=== PATIENT | female | born 1940 | race Caucasian/White ===

== ENCOUNTER 2019-10-02 11:58 | Outpatient (CLI) | payer MEDICARE ==
--- NOTE | 2019-10-30 13:03 | MMO ---
Bilateral MAMMO Bilat Screen [facility]. CLINICAL HISTORY: Patient is 79 years old and is seen for screening. The patient has no family history of breast cancer. The patient has no personal history of cancer. VIEWS: The views performed were: bilateral craniocaudal with tomosynthesis and bilateral mediolateral oblique with tomosynthesis. FILMS COMPARED: The present examination has been compared to prior imaging studies performed at [facility] on 10/10/2014, 10/29/2014 and 01/28/2016. This study has been interpreted with the assistance of computer-aided detection. MAMMOGRAM FINDINGS: There are scattered fibroglandular densities. There are no suspicious masses, suspicious calcifications, or new areas of architectural distortion. IMPRESSION: THERE IS NO MAMMOGRAPHIC EVIDENCE OF MALIGNANCY. A ROUTINE FOLLOW-UP MAMMOGRAM IN 1 YEAR IS RECOMMENDED. THE RESULTS OF THIS EXAM WERE SENT TO THE PATIENT. ACR BI-RADS Category 1 - Negative MAMMOGRAPHY NOTE: 1. A negative mammogram report should not delay a biopsy if a dominant of clinically suspicious mass is present. 2. Approximately 10% to 15% of breast cancers are not detected by mammography. 3. Adenosis and dense breasts may obscure an underlying neoplasm. Reported by: ALICIA JUSTICE MD Electonically Signed: [id number]
== END 2019-10-02 11:59 | disposition home or self-care (01) ==
LOC: BICMAMMO 11:58
PROVIDERS: ATTEND Family Medicine
DX: Z12.31 Encounter for screening mammogram for malignant neoplasm of breast (principal)
CPT/HCPCS: 77063; 77067

== ENCOUNTER 2020-08-07 08:57 | Day surgery (SDC) | payer MEDICARE ==
[2020-08-06 12:05] VITALS: BMI 35.2
[2020-08-07 09:19] LABS: INR-International Normal Ratio 0.9; PTT 30.2 sec (22.9-36.1); Prothrombin Time 12.7 sec (12.0-14.7)
[2020-08-07 10:23] VITALS: BP 158/61; TEMP 97.5
== END 2020-08-07 13:00 | disposition home or self-care (01) ==
LOC: CT 08:57
PROVIDERS: ATTEND Internal Medicine Medical Oncology
PROC: 07DR3ZX Extraction of Iliac Bone Marrow, Percutaneous Approach, Diagnostic (ICD-10-PCS; principal; 2020-08-07)
DX: D50.8 Other iron deficiency anemias (principal); D69.59 Other secondary thrombocytopenia; E03.9 Hypothyroidism, unspecified; E78.5 Hyperlipidemia, unspecified; I10 Essential (primary) hypertension; Z79.82 Long term (current) use of aspirin; Z79.899 Other long term (current) drug therapy; Z88.0 Allergy status to penicillin; Z88.1 Allergy status to other antibiotic agents; Z91.011 Allergy to milk products; Z91.012 Allergy to eggs
CPT/HCPCS: 20225; 77012; 85097; 85610; 85730; 88184; 88237; 88264; 88280; 88305; 88311; 88313; 88341; 88342; 88365

== ENCOUNTER 2021-05-27 13:18 | Emergency (ER) | payer MEDICARE ==
[2021-05-27] MEDS ORDERED: Meclizine HCl 25 MG TAB ONE (14:30)
[2021-05-27 15:01] LABS: Hemoglobin 11.4 g/dL (12.0-16.0); Mean Corpuscular HGB CONC 35.3 g/dL (32.0-36.0); Mean Corpuscular Hemoglobin 33.3 pg (27.0-31.0); Mean Corpuscular Volume 94.4 fL (78.0-98.0); White Blood Cell (WBC) Count 10.3 thou/uL (4.8-10.8)
[2021-05-27 15:03] LABS: Bacteria/HPF None Seen HPF (None Seen); Bilirubin Negative (Negative); Blood, Urine Trace (Negative); Clarity Turbid (Clear); Glucose, Urine (Dipstick) Normal (Negative); Ketone, Urine 20 mg/dL (Negative); Leukocyte Negative Leu/uL (Negative); Nitrite Negative (Negative); Protein, Urine (Dipstick) 50 mg/dL (Neg-Trace); RBC/HPF 0-3 HPF (0-3); Specific Gravity, Urine 1.022 (1.002-1.036); Squamous Epithelial 0-3 HPF (0-3); WBC/HPF 0-3 HPF (0-3)
[2021-05-27 15:21] LABS: Band 3 % (5-11); Lymphocytes 5 % (21-51); MDiff Complete? YES; Mean Platelet Volume 9.1 fL (7.4-10.4); Monocytes 14 % (0-10); Neutrophil 75 % (42-75); Ovalocytes SLIGHT = 2-5 cells (100X) (0-1/hpf); Platelet Count 75 thou/uL (130-400); Platelet Morphology Comment Appears Decreased; Polychromasia SLIGHT = 2-3 cells (100X) (0-2/hpf); Reactive Lymphocytes 2 % (0-10); Tear Drops SLIGHT = 2-5 cells (100X) (0-1/hpf)
[2021-05-27 15:31] LABS: ALT (SGPT) 18 U/L (8-55); AST (SGOT) 20 U/L (5-34); Albumin 4.2 g/dL (3.4-4.8); Alkaline Phosphatase 79 U/L (40-110); Anion Gap 13 mmol/L (10-20); BUN (Urea Nitrogen) 12 mg/dL (9.8-20.1); Bilirubin, Total 1.5 mg/dL (0.2-1.2); Calc. Creatinine Clearance 0 mL/min (70-130); Calcium 9.4 mg/dL (7.8-10.44); Carbon Dioxide 27 mmol/L (23-31); Chloride 99 mmol/L (98-107); Globulin 3.1 g/dL (2.4-3.5); Glucose 120 mg/dL (83-110); Lipase 10 U/L (8-78); Potassium 4.2 mmol/L (3.5-5.1); Protein, Total 7.3 g/dL (5.8-8.1); Sodium 135 mmol/L (136-145)
== END 2021-05-27 17:34 | disposition home or self-care (01) ==
LOC: ERS 13:18
DX: H81.13 Benign paroxysmal vertigo, bilateral (principal); K52.9 Noninfective gastroenteritis and colitis, unspecified; N83.202 Unspecified ovarian cyst, left side; E03.9 Hypothyroidism, unspecified; E78.5 Hyperlipidemia, unspecified; I10 Essential (primary) hypertension; Z79.899 Other long term (current) drug therapy; Z79.82 Long term (current) use of aspirin
CPT/HCPCS: 74177; 80053; 81003; 81015; 83690; 84484; 85025; 87086; 93005

== ENCOUNTER 2021-06-17 16:18 | Observation (INO) | payer MEDICARE ==
[2021-06-17] MEDS ORDERED: Ondansetron ODT 4 MG TAB PO PRN (20:46)
[2021-06-17] MEDS ORDERED: Simvastatin 40 MG TAB PO ONE (21:16)
[2021-06-17] MEDS ORDERED: Atorvastatin Calcium 20 MG TAB PO SCH (22:00)
[2021-06-17 22:08] LABS: ALT (SGPT) 7 U/L (8-55); AST (SGOT) 11 U/L (5-34); Albumin 3.6 g/dL (3.4-4.8); Alkaline Phosphatase 63 U/L (40-110); Anion Gap 13 mmol/L (10-20); BUN (Urea Nitrogen) 9 mg/dL (9.8-20.1); Calc. Creatinine Clearance 81 mL/min (70-130); Calcium 8.8 mg/dL (7.8-10.44); Carbon Dioxide 28 mmol/L (23-31); Chloride 101 mmol/L (98-107); Glucose 96 mg/dL (83-110); Potassium 3.2 mmol/L (3.5-5.1); Protein, Total 6.6 g/dL (5.8-8.1); Sodium 139 mmol/L (136-145)
[2021-06-17 22:25] LABS: Band 6 % (5-11); Hemoglobin 8.8 g/dL (12.0-16.0); Hypochromia SLIGHT = 6-15 cells (100X) (0-5/hpf); Lymphocytes 27 % (21-51); MDiff Complete? YES; Mean Corpuscular HGB CONC 36.3 g/dL (32.0-36.0); Mean Corpuscular Hemoglobin 34.7 pg (27.0-31.0); Mean Corpuscular Volume 95.7 fL (78.0-98.0); Mean Platelet Volume 8.8 fL (7.4-10.4); Monocytes 15 % (0-10); Neutrophil 52 % (42-75); Platelet Count 90 thou/uL (130-400); Platelet Morphology Comment Appears Decreased; RBC Distribution Width 13.8 % (11.5-14.5); Red Blood Cell (RBC) Count 2.52 mill/uL (4.20-5.40); White Blood Cell (WBC) Count 5.4 thou/uL (4.8-10.8)
[2021-06-17 22:49] LABS: Bacteria/HPF None Seen HPF (None Seen); Bilirubin Negative (Negative); Blood, Urine Negative (Negative); Clarity Clear (Clear); Glucose, Urine (Dipstick) Normal (Negative); Ketone, Urine 40 mg/dL (Negative); Leukocyte Negative Leu/uL (Negative); Nitrite Negative (Negative); Protein, Urine (Dipstick) Negative (Neg-Trace); RBC/HPF 0-3 HPF (0-3); Specific Gravity, Urine 1.009 (1.002-1.036); Squamous Epithelial None Seen HPF (0-3); Urobilinogen Normal mg/dL (Less than 2); WBC/HPF 0-3 HPF (0-3)
[2021-06-17] MEDS ORDERED: Potassium Chloride 20 MEQ TAB PO SCH (23:30)
[2021-06-18] MEDS: Levothyroxine Sodium 125 MCG TAB PO SCH (05:08)
[2021-06-18 06:16] LABS: ALT (SGPT) Less than 7 U/L (8-55); AST (SGOT) 11 U/L (5-34); Albumin 3.5 g/dL (3.4-4.8); Alkaline Phosphatase 61 U/L (40-110); Anion Gap 12 mmol/L (10-20); BUN (Urea Nitrogen) 9 mg/dL (9.8-20.1); Bilirubin, Total 0.9 mg/dL (0.2-1.2); Calc. Creatinine Clearance 85 mL/min (70-130); Calcium 8.7 mg/dL (7.8-10.44); Carbon Dioxide 28 mmol/L (23-31); Chloride 103 mmol/L (98-107); Globulin 2.9 g/dL (2.4-3.5); Glucose 97 mg/dL (83-110); Iron 54 ug/dL (50-170); Iron Binding Capacity, Total 210 mcg/dL (265-497); Potassium 3.9 mmol/L (3.5-5.1); Protein, Total 6.4 g/dL (5.8-8.1); Sodium 139 mmol/L (136-145)
[2021-06-18 06:18] LABS: Iron 53 ug/dL (50-170); Iron Binding Capacity, Total 205 mcg/dL (265-497)
[2021-06-18 06:26] LABS: Band 3 % (5-11); Eosinophils 1 % (0-10); Hemoglobin 8.7 g/dL (12.0-16.0); Hypochromia SLIGHT = 6-15 cells (100X) (0-5/hpf); Lymphocytes 24 % (21-51); MDiff Complete? YES; Mean Corpuscular HGB CONC 36.1 g/dL (32.0-36.0); Mean Corpuscular Hemoglobin 34.3 pg (27.0-31.0); Mean Corpuscular Volume 94.9 fL (78.0-98.0); Mean Platelet Volume 8.9 fL (7.4-10.4); Monocytes 4 % (0-10); Neutrophil 68 % (42-75); Nucleated RBC 1 % (0); Platelet Count 87 thou/uL (130-400); Platelet Morphology Comment Appears Decreased; RBC Distribution Width 13.8 % (11.5-14.5); Red Blood Cell (RBC) Count 2.55 mill/uL (4.20-5.40); White Blood Cell (WBC) Count 4.9 thou/uL (4.8-10.8)
[2021-06-18 06:40] LABS: Ferritin 222.31 ng/mL (10-291)
[2021-06-18 07:11] LABS: Vitamin B12 Greater than 2000 pg/mL (211-911)
[2021-06-18] MEDS: Enoxaparin Sodium 40 MG/0.4 ML SYRINGE SC SCH (08:53)
[2021-06-18] MEDS: Cyanocobalamin (Vitamin B-12) 1,000 MCG TAB PO SCH (08:53)
[2021-06-18] MEDS: Cholecalciferol 1,000 UNITS (25 MCG) TAB PO SCH (08:54)
[2021-06-18] MEDS: Losartan 25 MG TAB PO SCH (08:54)
[2021-06-18] MEDS: Nebivolol HCl 2.5 MG TAB PO SCH (08:54)
[2021-06-18] MEDS: Multivitamin W/ Minerals 1 TAB PO SCH (08:54)
[2021-06-18] MEDS: Aspirin Chewable 81 MG TAB PO SCH (08:54)
[2021-06-18 13:38] VITALS: BMI 30.9
[2021-06-18] MEDS ORDERED: Atorvastatin Calcium 20 MG TAB PO SCH (21:00)
[2021-06-19] MEDS: Levothyroxine Sodium 125 MCG TAB PO SCH (05:18)
[2021-06-19 07:01] LABS: Hemoglobin 9.1 g/dL (12.0-16.0); Mean Corpuscular HGB CONC 34.9 g/dL (32.0-36.0); Mean Corpuscular Hemoglobin 33.7 pg (27.0-31.0); Mean Corpuscular Volume 96.6 fL (78.0-98.0); Mean Platelet Volume 9.2 fL (7.4-10.4); Platelet Count 88 thou/uL (130-400); RBC Distribution Width 13.6 % (11.5-14.5); Red Blood Cell (RBC) Count 2.69 mill/uL (4.20-5.40); White Blood Cell (WBC) Count 6.3 thou/uL (4.8-10.8)
[2021-06-19 07:20] LABS: ALT (SGPT) 9 U/L (8-55); AST (SGOT) 20 U/L (5-34); Albumin 3.5 g/dL (3.4-4.8); Alkaline Phosphatase 62 U/L (40-110); Anion Gap 11 mmol/L (10-20); BUN (Urea Nitrogen) 6 mg/dL (9.8-20.1); Calc. Creatinine Clearance 78 mL/min (70-130); Calcium 9.1 mg/dL (7.8-10.44); Carbon Dioxide 27 mmol/L (23-31); Chloride 101 mmol/L (98-107); Globulin 3.3 g/dL (2.4-3.5); Glucose 98 mg/dL (83-110); Potassium 4.1 mmol/L (3.5-5.1); Protein, Total 6.8 g/dL (5.8-8.1); Sodium 135 mmol/L (136-145)
[2021-06-19 07:32] LABS: Band 2 % (5-11); Eosinophils 2 % (0-10); Lymphocytes 18 % (21-51); MDiff Complete? YES; Monocytes 23 % (0-10); Neutrophil 55 % (42-75); Ovalocytes SLIGHT = 2-5 cells (100X) (0-1/hpf); Platelet Morphology Comment Appears Decreased; Polychromasia SLIGHT = 2-3 cells (100X) (0-2/hpf)
[2021-06-19 07:38] VITALS: BP 145/55; TEMP 100.2
[2021-06-19] MEDS: Aspirin Chewable 81 MG TAB PO SCH (08:56)
[2021-06-19] MEDS: Enoxaparin Sodium 40 MG/0.4 ML SYRINGE SC SCH (08:56)
[2021-06-19] MEDS: Nebivolol HCl 2.5 MG TAB PO SCH (08:57)
[2021-06-19] MEDS: Multivitamin W/ Minerals 1 TAB PO SCH (08:57)
[2021-06-19] MEDS: Cyanocobalamin (Vitamin B-12) 1,000 MCG TAB PO SCH (08:57)
[2021-06-19] MEDS: Losartan 25 MG TAB PO SCH (08:58)
[2021-06-19] MEDS: Cholecalciferol 1,000 UNITS (25 MCG) TAB PO SCH (08:58)
[2021-06-19] MEDS ORDERED: Acetaminophen 325 MG TAB PO PRN (09:08)
[2021-06-19] MEDS ORDERED: Acetaminophen 325 MG TAB PO SCH (09:15)
== END 2021-06-19 19:23 | disposition home or self-care (01) ==
LOC: T4-B 17:08
PROVIDERS: ADMIT Family Medicine; ATTEND Family Medicine
DX: N81.10 Cystocele, unspecified (principal); R33.0 Drug induced retention of urine; T45.0X5A Adverse effect of antiallergic and antiemetic drugs, initial encounter; D25.9 Leiomyoma of uterus, unspecified; K58.0 Irritable bowel syndrome with diarrhea; R41.81 Age-related cognitive decline; I10 Essential (primary) hypertension; E78.5 Hyperlipidemia, unspecified; E03.9 Hypothyroidism, unspecified; D53.9 Nutritional anemia, unspecified; Z79.82 Long term (current) use of aspirin; Z79.899 Other long term (current) drug therapy; Z88.0 Allergy status to penicillin; Z91.011 Allergy to milk products; Z91.012 Allergy to eggs
CPT/HCPCS: 36415; 51702; 76770; 80053; 81001; 82378; 82607; 82728; 82746; 83540; 83550; 84443; 85025; 85060; 86304; 87086; 96372; G0378; J1650

== ENCOUNTER 2024-05-24 13:48 | Emergency (ER) | payer MEDICARE ==
[2024-05-24] MEDS ORDERED: HYDROcodone/Acetaminophen 5/325 mg Tablet ONE (18:42)
[2024-05-24] MEDS ORDERED: Ketorolac Tromethamine 30 MG (1 mL) VIAL ONE (20:50)
== END 2024-05-24 21:55 | disposition home or self-care (01) ==
LOC: ERS 13:48
DX: M25.552 Pain in left hip (principal); E03.9 Hypothyroidism, unspecified; I10 Essential (primary) hypertension; E78.00 Pure hypercholesterolemia, unspecified; Z79.890 Hormone replacement therapy; Z79.899 Other long term (current) drug therapy
CPT/HCPCS: 72170; 72192; 73502; J1885; 96372

== ENCOUNTER 2024-06-01 13:07 | Inpatient (IN) | payer MEDICARE ==
[2024-06-01 13:51] VITALS: BMI 30.2
[2024-06-01] MEDS ORDERED: Ondansetron ODT 4 MG TAB PO PRN (14:43)
[2024-06-01] MEDS: traMADol HCl 50 MG TAB PO PRN (16:57)
[2024-06-01] MEDS: Atorvastatin Calcium 20 MG TAB PO SCH (20:24)
[2024-06-01] MEDS: Famotidine 20 MG TAB PO SCH (20:24)
[2024-06-01] MEDS: Transdermal Patch Removal TOP SCH (22:58)
[2024-06-02 02:16] LABS: Hematocrit 29.2 % (36.0-47.0); Hemoglobin 10.2 g/dL (12.0-16.0); Mean Corpuscular HGB CONC 34.9 g/dL (32.0-36.0); Mean Corpuscular Hemoglobin 30.9 pg (27.0-31.0); Mean Corpuscular Volume 88.5 fL (78.0-98.0); Mean Platelet Volume 11.7 fL (7.4-10.4); Platelet Count 149 10x3/uL (130-400)
[2024-06-02 02:17] LABS: ALT (SGPT) 58 U/L (Less than 34); AST (SGOT) 28 U/L (11-34); Albumin 3.3 g/dL (3.1-4.5); Alkaline Phosphatase 88 U/L (40-110); Anion Gap 15 mmol/L (10-20); BUN (Urea Nitrogen) 14 mg/dL (9.8-20.1); Calc. Creatinine Clearance 89 mL/min (70-130); Calcium 9.2 mg/dL (7.8-10.44); Carbon Dioxide 26 mmol/L (23-31); Chloride 100 mmol/L (98-107); Estimated GFR 92; Globulin 3.4 g/dL (2.4-3.5); Glucose 95 mg/dL (83-110); Potassium 3.4 mmol/L (3.5-5.1); Protein, Total 6.7 g/dL (5.8-8.1); Sodium 138 mmol/L (136-145)
[2024-06-02 02:41] LABS: Band 2 % (5-11); Lymphocytes 8 % (21-51); Monocytes 7 % (0-10); Neutrophil 83 % (42-75); Platelet Adequacy Comment Platelets Normal; Tear Drops SLIGHT = 2-5 cells HPF (0-1)
[2024-06-02] MEDS: Levothyroxine Sodium 125 MCG TAB PO SCH (05:25)
[2024-06-02] MEDS: Lidocaine 4% Patch TD SCH (08:59)
[2024-06-02] MEDS: Multivitamin W/ Minerals 1 TAB PO SCH (09:00)
[2024-06-02] MEDS: Cyanocobalamin (Vitamin B-12) 1,000 MCG TAB PO SCH (09:00)
[2024-06-02] MEDS: Potassium Chloride 20 MEQ TAB PO SCH (09:00)
[2024-06-02] MEDS: Colestipol 1 GM TAB PO SCH (09:00)
[2024-06-02] MEDS: Nebivolol HCl 2.5 MG TAB PO SCH (09:00)
[2024-06-02] MEDS: Cholecalciferol 1,000 UNITS (25 MCG) TAB PO SCH (09:01)
[2024-06-02] MEDS: Losartan 25 MG TAB PO SCH (09:01)
[2024-06-02] MEDS: Enoxaparin 40 MG (0.4 mL) SYRINGE SC SCH (09:01)
[2024-06-02] MEDS: HYDROcodone/Acetaminophen 5/325 mg Tablet PO PRN (12:20)
[2024-06-02] MEDS: Ondansetron PF 4 MG/2 ML Vial IVP SCH (12:21)
[2024-06-02] MEDS: Lactated Ringer's 1,000 ML IV SCH (12:21)
[2024-06-02] MEDS: Cyclobenzaprine 10 MG TAB PO SCH (15:25)
[2024-06-03 07:42] LABS: ALT (SGPT) 37 U/L (Less than 34); AST (SGOT) 22 U/L (11-34); Albumin 3.1 g/dL (3.1-4.5); Alkaline Phosphatase 81 U/L (40-110); Anion Gap 12 mmol/L (10-20); BUN (Urea Nitrogen) 10 mg/dL (9.8-20.1); Bilirubin, Total 0.8 mg/dL (0.3-1.2); Calc. Creatinine Clearance 80 mL/min (70-130); Calcium 9.4 mg/dL (7.8-10.44); Carbon Dioxide 28 mmol/L (23-31); Chloride 102 mmol/L (98-107); Estimated GFR 90; Globulin 3.6 g/dL (2.4-3.5); Glucose 102 mg/dL (83-110); Potassium 4.2 mmol/L (3.5-5.1); Protein, Total 6.7 g/dL (5.8-8.1); Sodium 138 mmol/L (136-145)
[2024-06-03 07:46] LABS: #Basophils Less than 0.03 10x3/uL (0.0-0.2); #Eosinophils Less than 0.03 10x3/uL (0.0-0.7); %Basophils 0.2 % (0.0-1.0); %Lymphocytes 11.2 % (21.0-51.0); %Monocytes 16.2 % (0.0-10.0); %Neutrophils 68.7 % (42.0-75.0); Hematocrit 28.5 % (36.0-47.0); Hemoglobin 9.3 g/dL (12.0-16.0); Mean Corpuscular Hemoglobin 30.7 pg (27.0-31.0); Mean Corpuscular Volume 93.1 fL (78.0-98.0); Mean Platelet Volume 12.1 fL (7.4-10.4); Platelet Count 132 10x3/uL (130-400); RBC Distribution Width 14.3 % (11.5-14.5); Red Blood Cell (RBC) Count 3.06 mill/uL (4.20-5.40)
[2024-06-03] MEDS: Acetaminophen 325 MG TAB PO PRN (09:06)
[2024-06-03 21:33] LABS: Influenza A by NAA Not Detected (NotDetected); Influenza B by NAA Not Detected (NotDetected); SARS-CoV-2 NAA Rapid Test Not Detected (NotDetected)
[2024-06-04 05:04] LABS: Hematocrit 29.2 % (36.0-47.0); Mean Corpuscular HGB CONC 34.2 g/dL (32.0-36.0); Mean Corpuscular Hemoglobin 30.9 pg (27.0-31.0); Mean Corpuscular Volume 90.1 fL (78.0-98.0); Mean Platelet Volume 11.8 fL (7.4-10.4); Platelet Count 132 10x3/uL (130-400); RBC Distribution Width 14.2 % (11.5-14.5); Red Blood Cell (RBC) Count 3.24 mill/uL (4.20-5.40)
[2024-06-04 05:21] LABS: ALT (SGPT) 29 U/L (Less than 34); AST (SGOT) 20 U/L (11-34); Alkaline Phosphatase 76 U/L (40-110); Anion Gap 12 mmol/L (10-20); BUN (Urea Nitrogen) 11 mg/dL (9.8-20.1); Bilirubin, Total 0.9 mg/dL (0.3-1.2); Calc. Creatinine Clearance 84 mL/min (70-130); Calcium 9.5 mg/dL (7.8-10.44); Carbon Dioxide 29 mmol/L (23-31); Chloride 102 mmol/L (98-107); Estimated GFR 91; Globulin 3.8 g/dL (2.4-3.5); Glucose 106 mg/dL (83-110); Potassium 4.1 mmol/L (3.5-5.1); Protein, Total 6.8 g/dL (5.8-8.1); Sodium 139 mmol/L (136-145)
[2024-06-04 05:32] LABS: Lymphocytes 9 % (21-51); Monocytes 10 % (0-10); Neutrophil 81 % (42-75); Platelet Adequacy Comment Platelets Normal; Tear Drops SLIGHT = 2-5 cells HPF (0-1)
[2024-06-04 06:27] LABS: Bacteria/HPF None Seen HPF (None Seen); Bilirubin Negative (Negative); Blood, Urine Negative (Negative); CAUTI Indications for Culture Fever or rigors; Clarity Clear (Clear); Glucose, Urine (Dipstick) Normal (Negative); Ketone, Urine Negative (Negative); Leukocyte Negative Leu/uL (Negative); Nitrite Negative (Negative); Protein, Urine (Dipstick) Negative (Neg-Trace); RBC/HPF None Seen HPF (0-3); Squamous Epithelial None Seen HPF (0-3); Urobilinogen Normal mg/dL (Less than 2); WBC/HPF 0-3 HPF (0-3); pH, Urine 5.5 (5.0-9.0)
[2024-06-04 06:41] LABS: Urine Culture Reflex No No
[2024-06-05 06:15] LABS: #Basophils 0.03 10x3/uL (0.0-0.2); #Eosinophils Less than 0.03 10x3/uL (0.0-0.7); %Basophils 0.3 % (0.0-1.0); %Eosinophils 0.1 % (0.0-10.0); %Lymphocytes 7.9 % (21.0-51.0); %Monocytes 10.7 % (0.0-10.0); %Neutrophils 78.1 % (42.0-75.0); Hematocrit 29.1 % (36.0-47.0); Hemoglobin 9.7 g/dL (12.0-16.0); Mean Corpuscular HGB CONC 33.3 g/dL (32.0-36.0); Mean Corpuscular Hemoglobin 30.6 pg (27.0-31.0); Mean Corpuscular Volume 91.8 fL (78.0-98.0); Mean Platelet Volume 12.4 fL (7.4-10.4); Platelet Count 141 10x3/uL (130-400); RBC Distribution Width 14.1 % (11.5-14.5); Red Blood Cell (RBC) Count 3.17 mill/uL (4.20-5.40)
[2024-06-05 06:31] LABS: ALT (SGPT) 22 U/L (Less than 34); AST (SGOT) 15 U/L (11-34); Albumin 3.1 g/dL (3.1-4.5); Alkaline Phosphatase 79 U/L (40-110); Anion Gap 14 mmol/L (10-20); BUN (Urea Nitrogen) 11 mg/dL (9.8-20.1); Bilirubin, Total 0.8 mg/dL (0.3-1.2); Calc. Creatinine Clearance 82 mL/min (70-130); Calcium 9.4 mg/dL (7.8-10.44); Carbon Dioxide 28 mmol/L (23-31); Chloride 99 mmol/L (98-107); Estimated GFR 90; Globulin 3.9 g/dL (2.4-3.5); Glucose 159 mg/dL (83-110); Potassium 3.9 mmol/L (3.5-5.1); Sodium 137 mmol/L (136-145)
[2024-06-06 05:45] LABS: #Basophils 0.03 10x3/uL (0.0-0.2); #Eosinophils Less than 0.03 10x3/uL (0.0-0.7); %Basophils 0.2 % (0.0-1.0); %Eosinophils 0.1 % (0.0-10.0); %Lymphocytes 8.4 % (21.0-51.0); %Neutrophils 78.3 % (42.0-75.0); Hematocrit 29.4 % (36.0-47.0); Hemoglobin 9.9 g/dL (12.0-16.0); Mean Corpuscular HGB CONC 33.7 g/dL (32.0-36.0); Mean Corpuscular Hemoglobin 30.6 pg (27.0-31.0); Mean Corpuscular Volume 90.7 fL (78.0-98.0); Mean Platelet Volume 12.2 fL (7.4-10.4); Platelet Count 137 10x3/uL (130-400); RBC Distribution Width 14.3 % (11.5-14.5); Red Blood Cell (RBC) Count 3.24 mill/uL (4.20-5.40)
[2024-06-06 06:12] LABS: ALT (SGPT) 19 U/L (Less than 34); AST (SGOT) 16 U/L (11-34); Albumin 3.2 g/dL (3.1-4.5); Alkaline Phosphatase 92 U/L (40-110); Anion Gap 12 mmol/L (10-20); BUN (Urea Nitrogen) 14 mg/dL (9.8-20.1); Calc. Creatinine Clearance 71 mL/min (70-130); Calcium 9.9 mg/dL (7.8-10.44); Carbon Dioxide 30 mmol/L (23-31); Chloride 97 mmol/L (98-107); Estimated GFR 87; Globulin 4.3 g/dL (2.4-3.5); Glucose 102 mg/dL (83-110); Potassium 4.2 mmol/L (3.5-5.1); Protein, Total 7.5 g/dL (5.8-8.1); Sodium 135 mmol/L (136-145)
[2024-06-06 17:31] LABS: Hematocrit 28.8 % (36.0-47.0); Hemoglobin 9.9 g/dL (12.0-16.0); Mean Corpuscular HGB CONC 34.4 g/dL (32.0-36.0); Mean Corpuscular Hemoglobin 30.9 pg (27.0-31.0); Mean Platelet Volume 11.8 fL (7.4-10.4); Platelet Count 137 10x3/uL (130-400); RBC Distribution Width 14.1 % (11.5-14.5)
[2024-06-06 17:55] LABS: Lymphocytes 5 % (21-51); Monocytes 10 % (0-10); Neutrophil 84 % (42-75); Platelet Adequacy Comment Platelets Normal; Polychromasia SLIGHT = 2-3 cells HPF (0-2); RBC Morphology Within Normal Limits; Reactive Lymphocytes 1 % (0-10)
[2024-06-07 05:58] LABS: #Basophils 0.06 10x3/uL (0.0-0.2); #Eosinophils Less than 0.03 10x3/uL (0.0-0.7); %Basophils 0.4 % (0.0-1.0); %Eosinophils 0.1 % (0.0-10.0); %Lymphocytes 6.4 % (21.0-51.0); %Monocytes 11.5 % (0.0-10.0); %Neutrophils 78.3 % (42.0-75.0); Hematocrit 29.1 % (36.0-47.0); Hemoglobin 9.8 g/dL (12.0-16.0); Mean Corpuscular HGB CONC 33.7 g/dL (32.0-36.0); Mean Corpuscular Hemoglobin 30.2 pg (27.0-31.0); Mean Corpuscular Volume 89.5 fL (78.0-98.0); Mean Platelet Volume 12.6 fL (7.4-10.4); Platelet Count 136 10x3/uL (130-400); RBC Distribution Width 14.2 % (11.5-14.5); Red Blood Cell (RBC) Count 3.25 mill/uL (4.20-5.40)
[2024-06-07 06:28] LABS: ALT (SGPT) 16 U/L (Less than 34); AST (SGOT) 20 U/L (11-34); Alkaline Phosphatase 88 U/L (40-110); Anion Gap 12 mmol/L (10-20); BUN (Urea Nitrogen) 11 mg/dL (9.8-20.1); Bilirubin, Total 0.9 mg/dL (0.3-1.2); Calc. Creatinine Clearance 79 mL/min (70-130); Calcium 9.6 mg/dL (7.8-10.44); Carbon Dioxide 29 mmol/L (23-31); Chloride 97 mmol/L (98-107); Estimated GFR 89; Globulin 4.2 g/dL (2.4-3.5); Glucose 101 mg/dL (83-110); Protein, Total 7.2 g/dL (5.8-8.1); Sodium 134 mmol/L (136-145)
[2024-06-07 11:55] VITALS: BMI 30.2
[2024-06-07] MEDS: Sodium Chloride 0.9% 1,000 ML IV SCH (11:59)
[2024-06-08 02:04] LABS: Bacteria/HPF 2+ HPF (None Seen); Bilirubin Negative (Negative); Blood, Urine 2+ (Negative); CAUTI Indications for Culture Alt mental st,lethar; Clarity Turbid (Clear); Glucose, Urine (Dipstick) Normal (Negative); Ketone, Urine Negative (Negative); Leukocyte 500 Leu/uL (Negative); Nitrite 1+ (Negative); Protein, Urine (Dipstick) 70 mg/dL (Neg-Trace); RBC/HPF Greater than 50 HPF (0-3); Specific Gravity, Urine 1.009 (1.002-1.036); Urobilinogen Normal mg/dL (Less than 2); WBC/HPF Greater than 50 HPF (0-3)
[2024-06-08 02:05] LABS: Urine Culture Reflex Yes Yes
[2024-06-08] MEDS: Cyclobenzaprine 10 MG TAB PO PRN (02:08)
[2024-06-08 05:23] LABS: #Basophils 0.04 10x3/uL (0.0-0.2); #Eosinophils Less than 0.03 10x3/uL (0.0-0.7); %Basophils 0.4 % (0.0-1.0); %Eosinophils 0.1 % (0.0-10.0); %Lymphocytes 7.6 % (21.0-51.0); %Monocytes 13.2 % (0.0-10.0); %Neutrophils 74.2 % (42.0-75.0); Hematocrit 25.6 % (36.0-47.0); Hemoglobin 8.8 g/dL (12.0-16.0); Mean Corpuscular HGB CONC 34.4 g/dL (32.0-36.0); Mean Corpuscular Hemoglobin 30.8 pg (27.0-31.0); Mean Corpuscular Volume 89.5 fL (78.0-98.0); Mean Platelet Volume 12.1 fL (7.4-10.4); Platelet Count 129 10x3/uL (130-400); RBC Distribution Width 14.1 % (11.5-14.5); Red Blood Cell (RBC) Count 2.86 mill/uL (4.20-5.40)
[2024-06-08 05:28] LABS: ALT (SGPT) 14 U/L (Less than 34); AST (SGOT) 21 U/L (11-34); Albumin 2.7 g/dL (3.1-4.5); Alkaline Phosphatase 79 U/L (40-110); Anion Gap 12 mmol/L (10-20); BUN (Urea Nitrogen) 8 mg/dL (9.8-20.1); Bilirubin, Total 0.7 mg/dL (0.3-1.2); Calc. Creatinine Clearance 89 mL/min (70-130); Calcium 9.5 mg/dL (7.8-10.44); Carbon Dioxide 28 mmol/L (23-31); Chloride 100 mmol/L (98-107); Estimated GFR 92; Globulin 4.2 g/dL (2.4-3.5); Glucose 110 mg/dL (83-110); Potassium 4.3 mmol/L (3.5-5.1); Protein, Total 6.9 g/dL (5.8-8.1); Sodium 136 mmol/L (136-145)
[2024-06-08] MEDS: Cyclobenzaprine 10 MG TAB PO SCH (09:03)
[2024-06-08] MEDS: Cephalexin 250 MG CAP PO SCH (10:00)
[2024-06-08] MEDS: Sodium Chloride 0.9% 1,000 ML IV SCH (11:09)
[2024-06-09] MEDS: Polyethylene Glycol 3350 17 GM Packet PO SCH (08:57)
[2024-06-09 09:27] LABS: #Basophils Less than 0.03 10x3/uL (0.0-0.2); #Eosinophils Less than 0.03 10x3/uL (0.0-0.7); %Basophils 0.3 % (0.0-1.0); %Eosinophils 0.1 % (0.0-10.0); %Lymphocytes 8.7 % (21.0-51.0); %Neutrophils 72.2 % (42.0-75.0); Hematocrit 25.8 % (36.0-47.0); Hemoglobin 8.8 g/dL (12.0-16.0); Mean Corpuscular HGB CONC 34.1 g/dL (32.0-36.0); Mean Corpuscular Hemoglobin 30.8 pg (27.0-31.0); Mean Corpuscular Volume 90.2 fL (78.0-98.0); Mean Platelet Volume 11.9 fL (7.4-10.4); Platelet Count 128 10x3/uL (130-400); Red Blood Cell (RBC) Count 2.86 mill/uL (4.20-5.40)
[2024-06-09 09:50] LABS: ALT (SGPT) 12 U/L (Less than 34); AST (SGOT) 16 U/L (11-34); Albumin 2.7 g/dL (3.1-4.5); Alkaline Phosphatase 76 U/L (40-110); Anion Gap 10 mmol/L (10-20); BUN (Urea Nitrogen) 7 mg/dL (9.8-20.1); Bilirubin, Total 0.7 mg/dL (0.3-1.2); Calc. Creatinine Clearance 89 mL/min (70-130); Calcium 9.1 mg/dL (7.8-10.44); Carbon Dioxide 27 mmol/L (23-31); Chloride 102 mmol/L (98-107); Estimated GFR 92; Globulin 4.3 g/dL (2.4-3.5); Glucose 124 mg/dL (83-110); Potassium 4.2 mmol/L (3.5-5.1); Sodium 135 mmol/L (136-145)
[2024-06-10 08:02] LABS: Hematocrit 25.1 % (36.0-47.0); Hemoglobin 8.5 g/dL (12.0-16.0); Mean Corpuscular HGB CONC 33.9 g/dL (32.0-36.0); Mean Corpuscular Hemoglobin 30.5 pg (27.0-31.0); Mean Platelet Volume 12.2 fL (7.4-10.4); Platelet Count 143 10x3/uL (130-400); RBC Distribution Width 13.8 % (11.5-14.5); Red Blood Cell (RBC) Count 2.79 mill/uL (4.20-5.40)
[2024-06-10 08:17] LABS: ALT (SGPT) 11 U/L (Less than 34); AST (SGOT) 17 U/L (11-34); Albumin 2.8 g/dL (3.1-4.5); Alkaline Phosphatase 74 U/L (40-110); Anion Gap 15 mmol/L (10-20); BUN (Urea Nitrogen) 7 mg/dL (9.8-20.1); Bilirubin, Total 0.7 mg/dL (0.3-1.2); Calc. Creatinine Clearance 93 mL/min (70-130); Calcium 9.5 mg/dL (7.8-10.44); Carbon Dioxide 26 mmol/L (23-31); Chloride 100 mmol/L (98-107); Estimated GFR 93; Globulin 4.2 g/dL (2.4-3.5); Glucose 103 mg/dL (83-110); Potassium 4.7 mmol/L (3.5-5.1); Sodium 136 mmol/L (136-145)
[2024-06-10 08:49] LABS: Elliptocytes SLIGHT = 2-5 cells HPF (0-1); Lymphocytes 10 % (21-51); Monocytes 11 % (0-10); Neutrophil 76 % (42-75); Ovalocytes SLIGHT = 2-5 cells HPF (0-1); Platelet Adequacy Comment Platelets Normal; Poikilocytosis SLIGHT = 6-15 cells HPF (0-5); Polychromasia SLIGHT = 2-3 cells HPF (0-2); Reactive Lymphocytes 2 % (0-10); Schistocytes SLIGHT = 2-5 cells HPF (0-1)
[2024-06-11 00:29] VITALS: BP 128/71
[2024-06-11 06:37] LABS: #Basophils Less than 0.03 10x3/uL (0.0-0.2); #Eosinophils Less than 0.03 10x3/uL (0.0-0.7); %Basophils 0.3 % (0.0-1.0); %Eosinophils 0.2 % (0.0-10.0); %Lymphocytes 16.8 % (21.0-51.0); %Neutrophils 61.7 % (42.0-75.0); Hematocrit 26.3 % (36.0-47.0); Hemoglobin 8.9 g/dL (12.0-16.0); Mean Corpuscular HGB CONC 33.8 g/dL (32.0-36.0); Mean Corpuscular Hemoglobin 30.3 pg (27.0-31.0); Mean Corpuscular Volume 89.5 fL (78.0-98.0); Mean Platelet Volume 12.2 fL (7.4-10.4); Platelet Count 153 10x3/uL (130-400); RBC Distribution Width 13.8 % (11.5-14.5); Red Blood Cell (RBC) Count 2.94 mill/uL (4.20-5.40)
[2024-06-11 07:00] LABS: ALT (SGPT) 11 U/L (Less than 34); AST (SGOT) 15 U/L (11-34); Albumin 2.9 g/dL (3.1-4.5); Alkaline Phosphatase 74 U/L (40-110); Anion Gap 14 mmol/L (10-20); BUN (Urea Nitrogen) 7 mg/dL (9.8-20.1); Bilirubin, Total 0.8 mg/dL (0.3-1.2); Calc. Creatinine Clearance 91 mL/min (70-130); Calcium 9.7 mg/dL (7.8-10.44); Carbon Dioxide 27 mmol/L (23-31); Chloride 95 mmol/L (98-107); Estimated GFR 92; Globulin 4.3 g/dL (2.4-3.5); Glucose 97 mg/dL (83-110); Protein, Total 7.2 g/dL (5.8-8.1); Sodium 132 mmol/L (136-145)
[2024-06-11 08:44] VITALS: TEMP 98.5
[2024-06-11] MEDS ORDERED: Cyclobenzaprine 10 MG TAB PO PRN (09:57)
[2024-06-11] MEDS ORDERED: HYDROcodone/Acetaminophen 5/325 mg Tablet PO PRN (09:57)
[2024-06-11] MEDS: Docusate 100 MG CAP PO SCH (10:58)
[2024-06-11] MEDS ORDERED: Docusate 100 MG CAP PO SCH (21:00)
== END 2024-06-11 14:47 | DRG 543 ==
LOC: T4-A 13:18 → OBSVTOIN 06-03 06:47
PROVIDERS: ADMIT Student in an Organized Health Care Education/Training Program; ATTEND Student in an Organized Health Care Education/Training Program
DX: M48.54XA Collapsed vertebra, not elsewhere classified, thoracic region, initial encounter for fracture (principal); N39.0 Urinary tract infection, site not specified; I10 Essential (primary) hypertension; M48.56XA Collapsed vertebra, not elsewhere classified, lumbar region, initial encounter for fracture; E78.5 Hyperlipidemia, unspecified; E03.9 Hypothyroidism, unspecified; F10.90 Alcohol use, unspecified, uncomplicated; R50.9 Fever, unspecified; R11.2 Nausea with vomiting, unspecified; D72.829 Elevated white blood cell count, unspecified; R09.02 Hypoxemia; R41.0 Disorientation, unspecified; Z88.0 Allergy status to penicillin; Z88.8 Allergy status to other drugs, medicaments and biological substances; Z90.49 Acquired absence of other specified parts of digestive tract; Z91.81 History of falling; Z91.012 Allergy to eggs; Z91.011 Allergy to milk products
CPT/HCPCS: 36415; 71045; 72100; 80053; 81001; 84145; 85025; 86141; 87040; 87077; 87086; 87186; 93970; 96372; 96374; 97139; G0378; J1650; J2405; J7030; J7120

== ENCOUNTER 2024-11-26 08:18 | Day surgery (SDC) | payer MEDICARE ==
[2024-11-26 08:43] LABS: Hematocrit 26.2 % (36.0-47.0); Hemoglobin 8.6 g/dL (12.0-16.0); Mean Corpuscular Hemoglobin 30.4 pg (27.0-31.0); Mean Corpuscular Volume 92.6 fL (78.0-98.0); Platelet Count 128 10x3/uL (130-400); Red Blood Cell (RBC) Count 2.83 mill/uL (4.20-5.40); White Blood Cell (WBC) Count 6.18 10x3/uL (4.8-10.8)
[2024-11-26 09:18] LABS: Platelet Adequacy Comment Platelets Decreased; Polychromasia SLIGHT = 2-3 cells HPF (0-2)
[2024-11-26] MEDS ORDERED: Sodium Bicarbonate 2.5 MEQ/5 ML SDV ONE (09:41)
[2024-11-26] MEDS ORDERED: Lidocaine 1% w/Epinephrine 1:100K 20 ML VIAL ONE (09:41)
[2024-11-26 09:49] LABS: INR-International Normal Ratio 1.1; PTT 36.6 sec (22.9-36.1); Prothrombin Time 14.1 sec (12.0-14.7)
== END 2024-11-26 12:00 | disposition home or self-care (01) ==
LOC: CT 08:18
PROVIDERS: ATTEND Internal Medicine
PROC: 07DR3ZX Extraction of Iliac Bone Marrow, Percutaneous Approach, Diagnostic (ICD-10-PCS; principal; 2024-11-26)
DX: D75.89 Other specified diseases of blood and blood-forming organs (principal); D50.8 Other iron deficiency anemias; D46.Z Other myelodysplastic syndromes; C79.51 Secondary malignant neoplasm of bone; I10 Essential (primary) hypertension; E78.5 Hyperlipidemia, unspecified; Z90.89 Acquired absence of other organs; Z90.49 Acquired absence of other specified parts of digestive tract; Z88.0 Allergy status to penicillin; Z88.1 Allergy status to other antibiotic agents; Z91.012 Allergy to eggs; Z91.011 Allergy to milk products; Z79.82 Long term (current) use of aspirin; Z79.899 Other long term (current) drug therapy
CPT/HCPCS: 20225; 36000; 77002; 77012; 85025; 85097; 85610; 85730; C1830; J2250; J3010; 36415; 88184; 88237; 88264; 88280; 88305; 88311; 88313; 88341; 88342; 99152

== ENCOUNTER 2025-01-03 09:26 | Day surgery (SDC) | payer MEDICARE ==
[2025-01-03] MEDS ORDERED: Acetaminophen 500 MG TAB ONE (10:15)
[2025-01-03] MEDS ORDERED: diphenhydrAMINE 25 MG CAP ONE (10:15)
[2025-01-03] MEDS: diphenhydrAMINE 25 MG CAP PO SCH (10:16)
[2025-01-03] MEDS: Acetaminophen 500 MG TAB PO SCH (10:16)
[2025-01-03 12:53] VITALS: BP 143/65; TEMP 98.4
== END 2025-01-03 13:09 | disposition home or self-care (01) ==
LOC: ONC/OP 09:26
PROVIDERS: ATTEND Internal Medicine
DX: D64.9 Anemia, unspecified (principal); D69.59 Other secondary thrombocytopenia; Z91.012 Allergy to eggs; Z88.1 Allergy status to other antibiotic agents; Z88.0 Allergy status to penicillin
CPT/HCPCS: 36430; 86850; 86900; 86901; 86920; P9016

== ENCOUNTER 2025-04-03 09:02 | Day surgery (SDC) | payer MEDICARE ==
[2025-04-03] MEDS ORDERED: Acetaminophen 500 MG TAB ONE (10:19)
[2025-04-03] MEDS ORDERED: diphenhydrAMINE 25 MG CAP ONE (10:19)
[2025-04-03] MEDS: diphenhydrAMINE 25 MG CAP PO SCH (10:20)
[2025-04-03] MEDS: Acetaminophen 500 MG TAB PO SCH (10:20)
[2025-04-03 15:35] VITALS: BP 123/60; TEMP 99
== END 2025-04-03 16:06 | disposition home or self-care (01) ==
LOC: ONC/OP 09:02
PROVIDERS: ATTEND Internal Medicine
DX: D64.9 Anemia, unspecified (principal); D69.6 Thrombocytopenia, unspecified
CPT/HCPCS: 36430; 86850; 86900; 86901; 86920; P9016

== ENCOUNTER 2025-04-24 08:38 | Day surgery (SDC) | payer MEDICARE ==
[2025-04-24] MEDS: Acetaminophen 500 MG TAB PO SCH (12:20)
[2025-04-24] MEDS: diphenhydrAMINE 25 MG CAP PO SCH (12:20)
[2025-04-24] MEDS ORDERED: diphenhydrAMINE 25 MG CAP ONE (12:20)
[2025-04-24] MEDS ORDERED: Acetaminophen 500 MG TAB ONE (12:20)
[2025-04-24 17:05] VITALS: BP 135/65; TEMP 98.2
== END 2025-04-24 17:00 | disposition home or self-care (01) ==
LOC: ONC/OP 08:38
PROVIDERS: ATTEND Internal Medicine
DX: D64.9 Anemia, unspecified (principal); D69.6 Thrombocytopenia, unspecified
CPT/HCPCS: 36430; 86850; 86900; 86901; 86920; P9016; 36415